=== PATIENT | female | born 1995 | race Two or more races ===

== ENCOUNTER 2018-10-30 15:06 | Emergency (ER) | payer MEDICAID ==
[~2018-10-30] VITALS: Ht 165.1 cm; Wt 75.0 kg
[2018-10-30 15:24] VITALS: BP 148/92
== END 2018-10-30 20:00 | disposition left against medical advice (07) ==
LOC: ER 15:06
DX: R51 Headache (principal); Z53.21 Procedure and treatment not carried out due to patient leaving prior to being seen by health care provider